=== PATIENT | female | born 1990 | race Caucasian/White ===

== ENCOUNTER → 2020-03-30 10:37 | Outpatient (CLI) | payer MEDICAID, SELFPAY ==
--- NOTE | 2020-03-30 10:42 | US_ITS ---
STUDY: RENAL ULTRASOUND - COMPLETE REASON FOR EXAM: Female, 29 years old. UTI TECHNIQUE: Ultrasound evaluation of the kidneys was performed with real-time and static purvis-scale imaging. COMPARISON: None. FINDINGS: RIGHT KIDNEY: Normal location of the right kidney, which is normal in size. The right kidney measures 9.9 cm x 3.8 cm x 5.3 cm. There is a normal cortex of the right kidney. The renal cortex measures 1.0 cm. There is no right renal mass or cyst. There are no right renal calculi. There is no right hydronephrosis. DISTAL RIGHT URETER: There is non-visualization of the distal right ureter. There is no demonstrated right ureterovesical junction calculus. There is no demonstrated right ureteral jet. LEFT KIDNEY: Normal location of the left kidney, which is normal in size. The left kidney measures 9.5 cm x 5.8 cm x 5.4 cm. There is a normal cortex of the left kidney. The renal cortex measures 1.0 cm. There is no left renal mass or cyst. There are no left renal calculi. There is no left hydronephrosis. DISTAL LEFT URETER: There is non-visualization of the distal left ureter. There is no demonstrated left ureterovesical junction calculus. There is no demonstrated left ureteral jet. BLADDER: The bladder was not adequately distended for assessment at this time. Incidental note is made of a 3.4 cm x 4 cm x 3.7 cm left ovarian cyst. US/Kidney and Bladder IMPRESSION: Normal ultrasound of the kidneys. Incidental note is made of a 3.4 cm x 4 cm x 3.7 cm left ovarian cyst. Electronically Signed: Hansel Andersen, at 12:52 EST , Service support ,
== END ==
PROVIDERS: PCP Nurse Practitioner Adult Health; Referring Provider Urology; Visit Provider Urology
DX: N39.0 Urinary tract infection, site not specified (principal)
CPT/HCPCS: 76770

== ENCOUNTER 2020-04-12 08:36 | Day surgery (SDC) | payer MEDICAID, SELFPAY ==
[2020-04-12 09:09] VITALS: BP 117/84; PULSE 52; RESP 16; TEMP 36.5; O2SAT 98; BMI 29.5
[2020-04-12] MEDS: Lactated Ringers 1,000 ML 100 ML IV (09:40)
--- NOTE | 2020-04-12 09:58 | OP.PCM_ITS ---
Problem List (1) Urgency of urination Status: Acute (2) Frequency of urination Status: Acute (3) Pelvic pain Status: Acute (4) Dysuria Status: Acute Report of Operation Date of Procedure: 04/12/20 Pre-Operative Diagnosis: Urinary urgency, urinary frequency, pelvic pain, dysuria Post-Operative Diagnosis: same Surgery/Procedure Performed:: cystoscopy, hydrodistention Type of Anesthesia:: General Description of Procedure: The patient is a 29-year-old female with urinary urgency, frequency, pelvic pain, dysuria, dyspareunia etc. She was seen in the office and after informed consent, was scheduled for cystoscopy possible hydrodistention, possible bladder biopsy with fulguration. Patient was taken to the operating room and placed on the operating room table. Anesthesia monitored the head, neck, airway, IV access and vital signs t hroughout the case. Once anesthesia was appropriate ministered the patient was placed into dorsal lithotomy position was prepped and draped in usual sterile fashion. The cystoscope was inserted through the urethra under direct visualization into the urinary bladder. The bladder mucosa in its entirety was visualized. There were no masses, lesions, foreign body or areas of erythema identified. The ureteral orifices were located in the correct anatomic position. The bladder was then filled to capacity and allowed to sit for 2 minutes. At this time the capacity was measured at approximately 500 cc. Upon reentry into the urinary bladder, the mucosa was injected with a few diffuse glomeruli. Once again, the bladder was filled to capacity allowed to sit for 2 minutes. At this time the patient's bladder was emptied and the cystoscope was removed. The patient was awakened and taken to the recovery room in good condition. There were no complications during this procedure. Grafts/Implants Used: none - Complications none - Admit VTE Documentation VTE Present on Admission: Yes VTE Mechan Device Prophylaxis: SCD's VTE Pharm Prophylaxis ordered?: No Reason prophylaxis not ordered:: Treatment Not Indicated
--- NOTE | 2020-04-12 10:11 | PCM.DC.URO ---
Discharge Diet: No Restrictions Discharge Activity: May not drive while taking narcotic pain medications., May Shower May resume sexual activity in: No Restrictions Call your doctor if you observe: Fever of 101 or Higher, Inability to urinate, Inability to have a bowel movement Allergies/Adverse Reactions: Allergies No Known Allergies Allergy (Verified 04/04/20 12:58) Medications to take at Discharge Methenam/Sod Phos/Mblue/Hyoscy [Urogesic-Blue Tablet] 1 ea PO BID 04/04/20 Mirabegron [Myrbetriq] 50 mg PO QHS 04/04/20 Naproxen 500 mg PO PRN PRN 04/04/20 Vistaril 25 mg PO PRN PRN 04/04/20 Cephalexin [Keflex] 500 mg PO Q12 3 Days #6 cap 04/12/20 Oxycodone HCl/Acetaminophen [Percocet 5/325] 1 tablet PO Q8H PRN PRN 7 Days #10 tablet 04/12/20 Phenazopyridine HCl [Pyridium] 200 mg PO TID PRN PRN 7 Days #30 tab 04/12/20 The following prescriptions were given: Cephalexin [Keflex] 500 mg PO Q12 3 Days #6 cap Transmission Status: Pending to [id number] Oxycodone HCl/Acetaminophen [Percocet 5/325] 1 tablet PO Q8H PRN PRN 7 Days #10 tablet PRN Reason: Pain Transmission Status: Received by [id number] Phenazopyridine HCl [Pyridium] 200 mg PO TID PRN PRN 7 Days #30 tab PRN Reason: Bladder Spasms Transmission Status: Pending to [id number] Primary Care Physician: Tanja Daley NP, [employer] [Primary Care Provider] - Test Results: Test results from this visit will be discussed in further detail at your follow-up appointment, if applicable. Please Follow Up With: Mellisa Perea MD When: call office for appt. Proposed Discharge Date: 04/12/20
[2020-04-12] MEDS: Cefazolin 2 GM in 0.9% Normal Saline 100 ML IV (10:15)
[2020-04-12 10:32] VITALS: BP 115/61; BP 117/84; PULSE 82; RESP 16; TEMP 36.4; O2SAT 95
[2020-04-12 10:45] VITALS: BP 105/71; BP 117/84; PULSE 76; RESP 16; O2SAT 99
[2020-04-12 10:54] VITALS: BP 117/84; BP 123/76; PULSE 63; RESP 16; TEMP 36.2; O2SAT 100
[2020-04-12 11:27] VITALS: BP 117/84
== END 2020-04-12 11:27 | disposition home or self-care (01) ==
LOC: SDC 08:36 → AC 08:42
PROVIDERS: PCP Nurse Practitioner Adult Health; Referring Provider Urology; Visit Provider Urology
PROC: 0TBB8ZX Excision of Bladder, Via Natural or Artificial Opening Endoscopic, Diagnostic (ICD-10-PCS; CPT 52000; principal; 2020-04-12 10:55)
DX: R39.15 Urgency of urination (principal); R35.0 Frequency of micturition; R10.2 Pelvic and perineal pain; R30.0 Dysuria; F17.210 Nicotine dependence, cigarettes, uncomplicated; F41.9 Anxiety disorder, unspecified; Z79.899 Other long term (current) drug therapy; Z20.828 Contact with and (suspected) exposure to other viral communicable diseases
CPT/HCPCS: 00910; 52000; 87426; C9803; J7120; J2405